=== PATIENT | female | born 1935 | race Caucasian/White ===

== ENCOUNTER → 2016-10-25 | Outpatient (CLI) | payer OTHER, MEDICARE ==
[~2016-10-25] MED LIST: IOPAMIDOL (ISOVUE 370) 100 ML BTL IV ONE
--- NOTE | 2016-10-25 14:56 | CT ---
CT Pulmonary Angiogram an CT chest abdomen pelvis with contrast History: Hereditary hemorrhagic telangiectasia. History of breast cancer. Comparison: CT abdomen and pelvis June 09, 2016. CT angiogram chest and abdomen and pelvis December 16, 2015. Technique: Axial contrast-enhanced images were obtained through the chest, abdomen and pelvis followi ng the uneventful intravenous administration of 90 mL Isovue-370. Creatinine is 0.7. Multiplanar ref ormations were performed through the pulmonary arteries. Dose reduction techniques were utilized. Findings: Chest: This is a good quality study with visualization of the vessels to the subsegmental level. Ther e is no pulmonary embolus. No vascular malformations are visible. The main pulmonary arteries are mil dly prominent. A 6-mm polygonal nodule adjacent to the minor fissure (series 3 image 110) is unchange d. There is mild basilar scarring/atelectasis. Granulomas are noted. Heart size is normal. The interv entricular septum is normal. The ascending aorta is mildly ectatic, measuring 3.7 cm, unchanged, with out dissection. No pathologically enlarged lymph nodes are identified. Mild degenerative change is pr esent in the spine. Abdomen: A 1.2-cm right hepatic calcification is unchanged. Two hepatic cysts and a hypodensity too small to characterize are not significantly changed. Subcapsular hyperenhancement of the anterior asp ect of the left hepatic lobe (series 5 image 66) is not significantly changed, possibly representing a GRACIELA, with no definite vascular malformations identified. The gallbladder is decompressed. Splenic granuloma is noted. A 2.5 x 2.0 cm cyst at the inferior aspect of the pancreatic body (series 5 imag e 92) previously measured 2.5 x 1.6 cm, better visualized due to decreased motion. The adrenal glands are normal. Multiple renal cysts are again noted, including a cyst in the inferior right kidney with minimal dependent calcification. Multiple hypodensities in the kidneys are too small to characterize , statistically likely to represent cysts. A 2-mm nonobstructing right renal stone is present with a 3-mm nonobstructing left renal stone. Mild right hydronephrosis is present with no ureteral stone neal ntified. The left collecting system is normal. Apparent thickening of the rectum is new since the comparisons (series 5 image 248 e.g.), with limite d distention of the rectum in the region. Extensive colonic diverticulosis is present without evidenc e of diverticulitis. Moderate stool is present in the colon. The appendix is normal. A 1.5-cm duodena l diverticulum is noted. A tiny fat-containing periumbilical hernia is present. There is no free flui d or air. Mild atherosclerosis is present in a normal caliber aorta. The IVC, hepatic, portal, splenic, and sup erior mesenteric veins are patent. Preaortic nodularity (series 5 image 128) is unchanged since the c omparison, possibly related to a cluster of normal caliber lymph nodes or tortuous veins. No patholog ically enlarged lymph nodes are identified. The aorta is normal caliber The IVC, hepatic, portal, splenic, and superior mesenteric veins are delgado nt. No pathologically enlarged lymph nodes are identified. Grade 1 anterolisthesis of L4 on L5 is stable, with severe spinal canal narrowing at L4-L5. Pelvis: The bladder is normal. The uterus is surgically absent. No pathologically enlarged lymph nod es are identified. No aggressive osseous lesions are identified. Impression: 1. Apparent thickening of the rectum, which could be related to underdistention, inflammation, or a m ass. If the patient has not undergone recent colonoscopy, recommend direct visualization. 2. No vascular malformations are identified. 3. Mild right hydronephrosis with no visible etiology. 4. Constipation. 5. Diverticulosis without evidence of diverticulitis. 6. Degenerative change at L4-L5 with severe spinal canal narrowing. 7. Additional findings as above. Findings: Findings discussed with Ирина, phone triage nurse at [facility], today at 1447 hours.
== END ==
LOC: FIMAGING 10:47
PROVIDERS: ATTEND Internal Medicine Hematology & Oncology
DX: I78.0 Hereditary hemorrhagic telangiectasia (principal); N13.30 Unspecified hydronephrosis; K59.00 Constipation, unspecified; M51.36 Other intervertebral disc degeneration, lumbar region; K57.90 Diverticulosis of intestine, part unspecified, without perforation or abscess without bleeding; M43.16 Spondylolisthesis, lumbar region
CPT/HCPCS: 71275; 74177; Q9967

== ENCOUNTER → 2016-11-07 | Outpatient (CLI) | payer OTHER, MEDICARE | LOC: GIMAGING 12:55 | PROVIDERS: ATTEND Nurse Practitioner Family | DX: M79.671 Pain in right foot (principal) | CPT/HCPCS: 73630-PO ==

== ENCOUNTER → 2016-11-30 | Outpatient (CLI) | payer OTHER, MEDICARE ==
[2016-11-29 14:47] LABS: % IMMATURE GRANULOCYTES 0.5 % (0.0-1.1); ABSOLUTE IMMATURE GRANULOCYTES 0.02 10^3/uL (0-0.10); HEMATOCRIT 25.2 % (38.0-47.0); HEMOGLOBIN 7.1 g/dL (12.6-16.3); MEAN CELL HEMOGLOBIN 20.9 pg (27.9-34.1); MEAN CELL HEMOGLOBIN CONC. 28.2 g/dL (32.4-36.7); MEAN CELL VOLUME 74.1 fL (81.5-99.8); MEAN PLATELET VOLUME 11.2 fL (8.7-11.7); RED BLOOD CELL COUNT 3.4 10^6/uL (4.18-5.33); RED CELL DISTRIBUTION WIDTH 24.2 % (11.5-15.2)
[~2016-11-30] MED LIST changes: +ACETAMINOPHEN 325 MG TAB PO ONE; -IOPAMIDOL (ISOVUE 370) 100 ML BTL IV ONE
== END | disposition home or self-care (01) ==
LOC: RMCCLAB 11-29 14:32 → EDSTATUS 10:43 → FOBOP 10:44
PROVIDERS: ATTEND Internal Medicine Hematology & Oncology
PROC: 30233N1 Transfusion of Nonautologous Red Blood Cells into Peripheral Vein, Percutaneous Approach (ICD-10-PCS; principal; 2016-11-30)
DX: I78.0 Hereditary hemorrhagic telangiectasia (principal)
CPT/HCPCS: 36430; P9016

== ENCOUNTER → 2016-12-19 | Outpatient (CLI) | payer OTHER, MEDICARE ==
[2016-12-18 11:21] LABS: % IMMATURE GRANULOCYTES 0.7 % (0.0-1.1); ABSOLUTE IMMATURE GRANULOCYTES 0.03 10^3/uL (0-0.10); HEMOGLOBIN 7.1 g/dL (12.6-16.3); MEAN CELL HEMOGLOBIN 20.1 pg (27.9-34.1); MEAN CELL HEMOGLOBIN CONC. 28.4 g/dL (32.4-36.7); MEAN CELL VOLUME 70.8 fL (81.5-99.8); MEAN PLATELET VOLUME 10.6 fL (8.7-11.7); RED BLOOD CELL COUNT 3.53 10^6/uL (4.18-5.33); RED CELL DISTRIBUTION WIDTH 22.2 % (11.5-15.2)
== END ==
LOC: RMCCLAB 12-18 10:23 → EDSTATUS 11:24 → FOBOP 11:26
PROVIDERS: ATTEND Internal Medicine Hematology & Oncology
PROC: 30233N1 Transfusion of Nonautologous Red Blood Cells into Peripheral Vein, Percutaneous Approach (ICD-10-PCS; principal; 2016-12-19)
DX: I78.0 Hereditary hemorrhagic telangiectasia (principal)
CPT/HCPCS: 36430; P9016

== ENCOUNTER → 2017-01-25 | Day surgery (SDC) | payer OTHER, MEDICARE ==
[~2017-01-25] MED LIST changes: +ACETAMINOPHEN 325 MG TAB ONE
== END | disposition home or self-care (01) ==
LOC: FOBOP 07:50
PROVIDERS: ATTEND Internal Medicine Hematology & Oncology
PROC: 30233N1 Transfusion of Nonautologous Red Blood Cells into Peripheral Vein, Percutaneous Approach (ICD-10-PCS; principal; 2017-01-25)
DX: I78.0 Hereditary hemorrhagic telangiectasia (principal)
CPT/HCPCS: 36430; P9016; P9021